=== PATIENT | female | born 1985 | race Caucasian/White ===

== ENCOUNTER → 2022-04-11 08:15 | Outpatient (BNVA) | payer SELFPAY | DX: R76.11 Nonspecific reaction to tuberculin skin test without active tuberculosis (principal) ==

== ENCOUNTER → 2024-07-23 08:28 | Outpatient (BNVA) | payer SELFPAY | PROVIDERS: Visit Provider Physician Assistant Medical | DX: Z02.1 Encounter for pre-employment examination (principal) ==